=== PATIENT | male | born 1960 | race Caucasian/White ===

== ENCOUNTER 2017-09-25 02:08 | Emergency (ER) | payer OTHER ==
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
[2017-09-25 07:44] VITALS: BP 110/78
[2017-09-26] MEDS ORDERED: BUPROPION XL300 M1 PO (02:14)
[2017-09-26] MEDS ORDERED: HYDROCHLOROTHIA25 M1 PO (02:15)
[2017-09-26] MEDS ORDERED: METOPROLOL SUCC50 M2 PO (02:15)
[2017-09-26] MEDS ORDERED: LOSARTAN POTAS100 M1 PO (02:16)
[2017-09-26] MEDS ORDERED: GABAPENTIN300 M2 PO (02:16)
[2017-09-26] MEDS ORDERED: OXYCODONE HCL15 M1 PO (02:17)
== END 2017-09-25 07:45 ==
LOC: ERH 02:08
DX: F10.129 Alcohol abuse with intoxication, unspecified (principal)
CPT/HCPCS: G0480

== ENCOUNTER 2017-09-25 16:52 | Inpatient (IN) | payer OTHER ==
[~2017-09-25] VITALS: Ht 167.6 cm; Wt 75.9 kg
--- NOTE | 2017-09-25 17:03 | ED PSYCHIATRIC COMPLAINT ---
See Addendum History of Present Illness General Chief Complaint: Psychiatric Related Complaint Stated Complaint: BIBA +SI, +PEER Source: patient Exam Limitations: no limitations Vital Signs & Intake/Output Vital Signs & Intake/Output Vital Signs Date Time Temp Pulse Resp B/P B/P Pulse O2 O2 Flow FiO2 Mean Ox Delivery Rate 09/26 0810 99.3 87 18 178/111 95 Room Air 09/26 0430 98.1 94 16 160/100 09/26 0430 98.1 94 16 160/100 97 Room Air Room Air 09/26 0303 180/104 09/26 0303 180/104 09/26 0206 98.0 104 16 180/108 09/26 0205 98.2 104 16 180/108 96 Room Air Room Air 09/25 2221 105 18 157/91 96 Room Air 09/25 2122 124 18 144/102 97 Room Air 09/25 1707 Room Air 09/25 1706 98.5 118 18 168/102 95 Room Air ED Intake and Output 09/26 0000 09/25 1200 Intake Total Output Total Balance Patient 180 lb Weight Allergies Coded Allergies: UNOBTAINABLE (09/25/17) Triage Nurses Notes Reviewed? yes Onset: Gradual Duration: constant Timing: recent history Severity: severe Severity Numbers: 10 HPI: The patient is a 57-year-old male presents emergency room which old records indicate the patient presented brought in by ambulance to [place] emergency room at 2 AM last night for concerns of driving call all intoxicated through records patient stayed till approximately 8 AM this morning was picked up by his patient return to the emergency room brought in by ambulance for being on a PEER here for concerns of suicide ideation The PEER states that a 911 call was made reporting that Corey stated that he was in his basement trying to hang himself and appeared to be under the influence of alcohol. Patient denies these allegations states that when he left the emergency room he had a few beers and went to sleep. Patient denies any current suicidal or homicidal ideation denies any illness states that his checked cheated on him proximal 6 months ago and began drinking heavily since. Patient denies any pain however is requesting his medications of oxycodone and states that "I'm going through withdrawal right now from oxycodone Denies any homicidal ideation denies any occult jaw seizure history denies any visual or auditory hallucinations. Does not want firearms at home Please note the patient also does not remember the events of being in the emergency room yesterday evening due to his intoxication (Chino Gao) Reconcile Medications Bupropion HCl (Bupropion XL) 300 MG TAB.ER.24H 1 TAB PO DAILY DEPRESSION ( Reported) Gabapentin 300 MG CAPSULE 1 CAP PO TID BACK PAIN (Reported) Hydrochlorothiazide 25 MG TABLET 1 TAB PO DAILY HTN (Reported) Losartan Potassium 100 MG TABLET 1 TAB PO DAILY CHOL (Reported) Metoprolol Succinate 50 MG TAB.ER.24H 1 TAB PO BID HTN (Reported) Oxycodone HCl 15 MG TABLET 1 TAB PO 4XDP BACK PAIN (Reported) (Joseph Lovell MD) Past History Travel History Traveled to [place] past 21 day No Medical History Any Pertinent Medical History? see below for history Neurological: UNOBTAINABLE EENT: UNOBTAINABLE Cardiovascular: hypertension Respiratory: UNOBTAINABLE Gastrointestinal: UNOBTAINABLE Hepatic: UNOBTAINABLE Renal: UNOBTAINABLE Musculoskeletal: chronic back pain Psychiatric: anxiety, UNOBTAINABLE Endocrine: UNOBTAINABLE Blood Disorders: UNOBTAINABLE Cancer(s): UNOBTAINABLE SAFETY COORDINATOR/Reproductive: UNOBTAINABLE Surgical History Surgical History: non-contributory Psychosocial History What is your primary language [place]ian Family History Hx Contributory? No (Chino Gao) Review of Systems Review of Systems Constitutional: Reports: no symptoms. EENTM: Reports: no symptoms. Respiratory: Reports: no symptoms. Cardiovascular: Reports: no symptoms. GI: Reports: no symptoms. Genitourinary: Reports: no symptoms. Musculoskeletal: Reports: no symptoms. Skin: Reports: no symptoms. Neurological/Psychological: Reports: see HPI. Hematologic/Endocrine: Reports: no symptoms. Immunologic/Allergic: Reports: no symptoms. All Other Systems: Reviewed and Negative (Chino Gao) Physical Exam Physical Exam General Appearance: no apparent distress, alert, comfortable Head: atraumatic Eyes: Bilateral: normal appearance, PERRL, EOMI. Ears, Nose, Throat: normal pharynx, normal ENT inspection Neck: normal inspection Respiratory: normal breath sounds, chest non-tender Cardiovascular: regular rate/rhythm Neurological/Psychiatric: no motor/sensory deficits, calm, depressed affect Appearance/Memory/Insight: denies illness, disheveled Behavoir/Eye Contact/Speech: cooperative, increased rate of speech, normal speech Thoughts/Hallucinations: normal thought pattern, no apparent hallucination Skin: intact, normal color, warm/dry SAD PERSONS SAD PERSONS Response Value Male Sex? yes 1 Age <19 or >45 years? yes 1 Excessive Ethanol/Drug Use? yes 1 Single//? yes 1 Total 4 SAD PERSONS Done? yes (Rena JETT,[place]) Progress Differential Diagnosis: drug intoxication, drug overdose, drug withdrawal, electrolyte abnormality, encephalitis, hypoglycemia, hypothyroidism, IC hem/mass /tumor, meningitis Plan of Care: Orders Procedure Date/time Status Regular Diet 09/26 B Active Continuous Observation Monitor 09/25 1710 Active URINE DRUG SCREEN FOR ER ONLY 09/25 171 Complete LIPASE 09/25 171 Complete ETHANOL 09/25 1710 Complete COMPREHENSIVE METABOLIC PANEL 09/25 1710 Complete CBC WITHOUT DIFFERENTIAL 09/25 1710 Complete ED CRISIS PSYCH CONSULT 09/25 171 Active Current Medications Sig/Trini Start time Last Medication Dose Stop Time Status Admin Bupropion HCl 300 MG DAILY 09/26 0900 UNVr (Wellbutrin XL) Hydrochlorothiazide 25 MG DAILY 09/26 0230 UNVr 09/26 (Hydrodiuril) 0303 Losartan Potassium 100 MG DAILY 09/26 0230 UNVr 09/26 (Cozaar) 0303 Gabapentin 300 MG TID 09/26 0218 UNVr 09/26 (Neurontin) 0303 Metoprolol Succinate 50 MG BID 09/26 0218 UNVr 09/26 (Toprol Xl) 0303 Laboratory Tests 09/25/17 1800: Serum Alcohol 257.0 09/25/17 1800: Anion Gap 15, Estimated GFR > 60, BUN/Creatinine Ratio 11.7, Glucose 141 H, Calcium 8.9, Total Bilirubin 1.3, AST 59, ALT 42, Alkaline Phosphatase 81, Total Protein 7.6, Albumin 4.5, Globulin 3.1, Albumin/Globulin Ratio 1.5, Lipase 167, CBC w Diff NO MAN DIFF REQ, RBC 5.07, MCV 93.6, MCH 31.3 H, MCHC 33.5, RDW 16.1 H, MPV 6.8 L, Gran % 63.4, Lymphocytes % 28.5, Monocytes % 7.5, Eosinophils % 0.2, Basophils % 0.4, Absolute Granulocytes 3.7, Absolute Lymphocytes 1.7, Absolute Monocytes 0.4, Absolute Eosinophils 0, Absolute Basophils 0, Urine Opiates Screen 978.00, Methadone Screen < 40, Barbiturate Screen < 60, Ur Phencyclidine Scrn < 6.00, Amphetamines Screen 231, U Benzodiazepines Scrn < 85, Urine Cocaine Screen < 50, Urine Cannabis Screen < 5.00 Patient upon initial presentation is noted to have a depressed affect over was offered alcohol withdrawal evaluation however initially he is unsure Patient will be holdover in the emergency room due to his significant alcohol intoxication for evaluation by crisis tomorrow discussed disposition and plan with patient who is aware patient was requesting his prescriptions of Ativan and oxycodone Hand-Off Endorsed To: Joseph Lovell MD Endorsed Time: 0100 Pending: consult (Chino Gao) Hand-Off Endorsed To: Pasquale Gonzalez DO Endorsed Time: 0700 Pending: consult (Joseph Lovell MD) Departure Departure Disposition: STILL A PATIENT Condition: Stable Clinical Impression Primary Impression: Suicide ideation Secondary Impressions: Alcohol abuse Referrals: Patient Has No Primary Care Dr (PCP/Family) Departure Forms: Customer Survey General Discharge Information (Chino Gao) PA/ROLL PLUGGER Co-Sign Statement Statement: ED Attending supervision documentation- x I saw and evaluated the patient. I have also reviewed all the pertinent lab results and diagnostic results. I agree with the findings and the plan of care as documented in the PA's/ROLL PLUGGER's documentation. [] I have reviewed the ED Record and agree with the PA's/ROLL PLUGGER's documentation. [] Additions or exceptions (if any) to the PAs/ROLL PLUGGER's note and plan are summarized below: [] (Joseph oLvell MD) Departure Comments 09/26/17 The patient was signed out to me by Dr. Lovell. He was seen and evaluated by crisis; he is for bed search. (Pasquale Gonzalez DO) Critical Care Note Critical Care Note Critical Care Time: 30-74 min (Chino Gao)
[2017-09-25 18:14] LABS: ABSOLUTE BASOPHIL COUNT 0 /CUMM (0.0-0.2); ABSOLUTE EOSINOPHIL COUNT 0 /CUMM (0.0-0.7); ABSOLUTE GRANULOCYTE CT 3.7 /CUMM (1.4-6.5); ABSOLUTE LYMPH COUNT 1.7 /CUMM (1.2-3.4); ABSOLUTE MONOCYTE COUNT 0.4 /CUMM (0.10-0.60); BASOPHIL % 0.4 % (0.0-2.0); EOSINOPHIL % 0.2 % (0-5); GRANULOCYTE % 63.4 % (42.2-75.2); HEMATOCRIT 47.4 % (42-52); MEAN CORPUSCULAR HGB 31.3 PG (27.0-31.0); MEAN CORPUSCULAR HGB CONC 33.5 G/DL (33.0-37.0); MEAN CORPUSCULAR VOLUME 93.6 FL (80.0-94.0); MEAN PLATELET VOLUME 6.8 FL (7.4-10.4); PLATELET COUNT 244 /CUMM (130-400); RBC DISTRIBUTION WIDTH 16.1 % (11.5-14.5); RED BLOOD CELL CT 5.07 /CUMM (4.70-6.10); WHITE BLOOD CELL COUNT 5.9 /CUMM (4.8-10.8)
[2017-09-26] VITALS (10 sets, daily range): BP systolic 144–180; BP diastolic 90–114
[2017-09-26] MEDS ORDERED: BUPROPION XL300 M1 PO (02:14)
[2017-09-26] MEDS ORDERED: METOPROLOL SUCC50 M2 PO (02:15)
[2017-09-26] MEDS ORDERED: HYDROCHLOROTHIA25 M1 PO (02:15)
[2017-09-26] MEDS ORDERED: GABAPENTIN300 M2 PO (02:16)
[2017-09-26] MEDS ORDERED: LOSARTAN POTAS100 M1 PO (02:16)
[2017-09-26] MEDS ORDERED: OXYCODONE HCL15 M1 PO (02:17)
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
--- NOTE | 2017-09-26 22:08 | Admission Certification ---
Admission Certification Certification Statement - As attending physician, I certify that at the time of - admission, based on clinical presentation, severity of - symptoms, need for further diagnostic testing and - therapeutic interventions, and risk of adverse outcomes - without in-hospital treatment, in my clinical assessment, - this patient requires an acute hospital stay for a minimum - of two nights or longer. I have also considered psychsocial - factors such as support system, advanced age, financial - issues, cognitive issues, and failed out-patient treatments, - past re-admission history, safety of patient, and lack of - compliance as applicable. Specific rationale supporting this admission is: alcohol detix, SI
[2017-09-27 07:37] VITALS: BP 129/67
[2017-09-27 07:40] VITALS: BP 129/67
[2017-09-27 12:18] VITALS: BP 132/97
[2017-09-27 12:27] VITALS: BP 132/97
--- NOTE | 2017-09-27 12:31 | CPS PROVIDER INIT ASMT PSYCH ---
Psychiatric Admission Pulp Bleacher's Note Reviewed: Yes Patient Seen and Examined: Yes Identifying Information: 57-year-old white male brought in to the emergency department by ambulance Chief Complaint: My depression is unbearable Reaction to Hospitalization: The patient was admitted voluntarily History of Present Illness Onset of Illness: Per Sang Anthony, AUTOMATIC DRILLING MACHINE OPERATOR's notes: "Pt is a 57yo male biba to [facility] ED on a [place] [employer] PEER documenting SI and etoh intoxification. Pt reportedly stated to "I feel like checking out" and was looking in basement for beams strong enough to hang himself from. Pt reports feeling hopeless, worthless and states he is experiencing unbearable depression. Pt reports struggling with alcohol abuse for years and has been drinking a 5th of etoh daily despite 2 recent inpatient detoxes at [facility] followed by tx at their IOP. Pt reports he is currently prescribed Wellbutrin and Ativan and medications for high blood pressure. 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 Pt reports primary stressor past yr is unemployment, finances and marital conflict due to both he and having extra-marital affairs. He reports they have been trying to work things out and that his is supportive of him getting help. Pt denies HI, denies gun access. No indication of AH/VH. pt presents as calm, cooperative, depressed and OX3. Case reviewed with Dr Amin with recommendation for inpatient psychiatric treatment. Plan reviewed with pt and he is in agreement. Pt will require a bed search as there are no current beds available on [facility]. Circumstances Leading to Admission: See above Problem(s) Justifying Need for Admission: See above Past Psychiatric History Past Diagnosis(es)- if any: Depression and alcohol use disorder, severe Past Precipitating Factors- if any: Alcohol use - Include inpatient and outpatient treatment Treatment History: The patient was inpatient at [facility] for a detoxification and then he did their intensive outpatient program History of Suicide Attempts or Gestures Denied ever attempting suicide Substance Abuse History: Alcohol use disorder, severe Allergies: Coded Allergies: No Known Allergies (09/26/17) Home Med List: Bupropion HCl (Bupropion XL) 300 MG TAB.ER.24H 1 TAB PO DAILY DEPRESSION #90 (Reported) Entered as Reported by Izabella Gorman on 06/28/18 0214 Gabapentin 300 MG CAPSULE 1 CAP PO TID BACK PAIN #45 (Reported) Entered as Reported by Izabella Gorman on 09/26/17215 Hydrochlorothiazide 25 MG TABLET 1 TAB PO DAILY HTN #90 (Reported) Entered as Reported by Izabella Goramn on 09/26/17214 Losartan Potassium 100 MG TABLET 1 TAB PO DAILY CHOL #15 (Reported) Entered as Reported by Izabella Gorman on 09/26/17215 Metoprolol Succinate 50 MG TAB.ER.24H 1 TAB PO BID HTN #90 (Reported) Entered as Reported by Izabella Gorman on 09/26/17214 Oxycodone HCl 15 MG TABLET 1 TAB PO 4XDP BACK PAIN - Include any medical condition(s) that may - impact the patient's recovery/remission Past Medical History: HTN, on 3 different meds (losartan, metoprolol and HCTS) his Metoprolol dose was recently increased. 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 Isolation History: Standard Surgical History Surgical History: UNOBTAINABLE Psychiatric Family/Social Hx Family History Psychiatric Illness: Patient's mother has dementia Substance Use: Not explored Suicides: Not explored Social History Living Situation: Lives with and adult son Significant Relationships (family/friends): and adult son Education: Not explored Vocation/Occupation: Currently unemployed 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 - #1 Recognizing dangerous situations. - #2 Coping Skills. - #3 Basic information about quitting. Status of Tobacco Cessation Counseling: #1, #2 AND #3 Completed Cessation Med Status Nicotine Gum Ordered Alcohol Screening - ETOH screen POS if BAL >=80 or Audit-C>= M4/F3 Audit-C Score from Diag Assess: 12 Blood Alcohol Level: Laboratory Tests 09/25 1800 Toxicology Serum Alcohol (<10 MG/DL) 257.0 Alcohol Use Screening Results: Pos per Audit C &/or BAL - If ETOH counseling indicated - the following topics are required. - #1 Express concern about the patient's - drinking at unhealthy levels, include informing - of national norms for moderate drinking: - men <= 14 drinks/week, max 4 drinks/occasion - women <= 7 drinks/week, max 3 drinks/occasion - #2 Providing feedback, including linking alcohol to - negative physical effects (liver injury, hypertension) - negative emotional effects (relationship problems and - depression) - negative occupational consequences (reduced work - performance) - #3 Advising the patient to abstain from alcohol or - to drink below national norms for moderate drinking - (as listed above). Status of ETOH Use Counseling: #1, #2 AND #3 Completed. Metabolic Screening - Screen if on a Neuroleptic Medication - Metabolic screening should include: - Blood Pressure, BMI, Glucose or Hgb A1c, & a - Lipid profile from within the past 365 days. Metabolic Screening Not Applicable, patient not on a neuroleptic. Exam and Plan Mental Status Examination Ambulation Status: Patient was steady on his feet. Appearance: Unremarkable appearance. Attitude towards examiner: , Cooperative. Psychomotor activity: Normal psychomotor activity Behavior: No abnormal or bizarre behaviors Quality of speech: Normal speech Affect: Euthymic Mood: Reported feeling depressed and anxious Suicidal Ideation: Denies thinking of suicide. Homicidal Ideation: Denies thinking of homicide. Hallucinations: Denied hallucinations. Paranoid/Delusional Material: Denies feeling paranoid, there were no delusions during the interview. Difficulties with thought organization: She was coherent, there was no thought disorder. Insight: Partial insight. Judgment: Seems to have poor judgment according to the recent history. Orientation: Alert and oriented to time, place, and person. Cognition: Seems to have no difficulties with information processing. Memory Function: There was no gross impairment in his short-term memory. Estimate of intellectual functioning: Average. Assets/Strengths Patient Identified Assets/Strengths: Patient seems to be likable, he has a supportive family, and good work history Impression/Plan Impression and Plan: 57-year-old white male presenting with depression with severe alcohol use disorder. He was most recently at the intensive outpatient program at [facility] and before that he was in the detoxification inpatient unit at [facility] - Include all active medical diagnosis that require tx DSM 5 Diagnosis(es): Unspecified depressive disorder Alcohol use disorder, severe - Initial Tx Plan for Active Psych & Medical Conditions Treatment Plan: Inpatient psychiatric care with safety checks every 15 minutes Reduce Wellbutrin from 300 mg to 150 mg Start Zoloft 50 mg daily Continue detoxification protocol for the time being Nursing assessments, vital signs, and patient education and Biopsychosocial assessment, collateral information, and aftercare planning by [facility] Group therapy, milieu therapy, and activities therapy Patient will be seen daily by psychiatrist to evaluate mental status and monitor medications. - Factors that would help patient function - in a less restrictive setting. Factors: The patient will be as will be discharge if he continues to deny suicidal ideation over the weekend and once there is a solid discharge plan
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
--- NOTE | 2017-09-27 14:21 | SOCIAL WORKER PROG NOTE PSYCH ---
Social Work Progress Note Progress Note Environmental Journalist was able to meet with pt. Pt is settling into the unit and going to groups. Pt denies SI, HI, VH, AH. Pt was tearful at times, sad, anxious and vulnerable when speaking about the days leading him to be inpatient. Pt reports being overwhelmed at the moment due to not knowing about court dates is very anxious about missing a court date due to being inpatient. Pt had finanical stressors, marital stressors. Pt is motivated for treatment, to go back to [facility] and attend and obtain a sponsor. Pt would like to repair his relationship with his son and be able to work on fixing a car together as a side project. Pt is aware that his alcohol abuse has caused him a lot of pain and stressors. 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 Pt expressed wanting help obtaining information about court dates and arrests, possibly be able to obtian police report and be updates on what the next step will be for him.
[2017-09-27 19:47] VITALS: BP 140/90
[2017-09-27 20:09] VITALS: BP 140/90
[2017-09-28] VITALS (8 sets, daily range): BP systolic 118–154; BP diastolic 86–96
--- NOTE | 2017-09-28 22:19 | CP SOUTH PROGRESS NOTE PSYCH ---
Psych (Inpt) Progress Note Progress Note Chief Complaint Discussed overnight events with RN and staff. As per RN report, the patient appeared to be sleeping throughout the night. No PRNs/restrains required in the last 24hrs. I saw the patient this morning with the treatment team. he reported feeling OK although he continues to appear depressed and isolative. He is minimally interacting with peers. He requested nicotine gum. Otherwise, he denies suicidal /homicidal thoughts/intent/plans at present. he has adequate appetite and sleep. She is compliant to medications, no side effects reported and none in evidence. Vitals reviewed Vital Signs Result Date Time B/P 154/96 09/28 2008 Temp 98.4 09/28 2008 Pulse 84 09/28 2009 Resp 18 09/28 0806 O2 Delivery Room Air 09/26 1751 O2 Flow Rate Room Air 09/26 1751 Pulse Ox 97 09/26 1601 Mental Status Examination Consciousness: Awake, alert Orientation: A&O x4, oriented to person, place, year, situation Appearance: appears stated age, dressed in casual attire, with fair hygiene Behavior: calm and cooperative Attitude: open and engaged Eye Contact: appropriate Speech: articulate, fluent but need prompting at times, answers in short phrases Mood: OK Affect: mood-congruent, constricted to sad with minimal emotional reactivity Thought Process: organized Thought Content: depressed, isolative, withdrawn, lack of motivation, no withdrawal sxs, denies suicidal/homicidal ideations at the time of the interview , no delusions elicited/verbalized at present Perceptions: denies audiovisual hallucinations Attention: attentive to interview Memory: grossly intact Insight: limited Judgment: limited no psychomotor abnormalities noted Motor: no abnormal movements, Gait WNL Neuro: grossly intact Independent in ADL's and iADL's Labs Reviewed as documented in chart. Laboratory Tests 09/25 09/25 1800 1800 Chemistry Sodium (137 - 145 mmol/L) 143 Potassium (3.5 - 5.1 mmol/L) 4.3 Chloride (98 - 107 mmol/L) 101 Carbon Dioxide (22 - 30 mmol/L) 27 Anion Gap (5 - 16) 15 BUN (9 - 20 mg/dL) 14 Creatinine (0.7 - 1.2 mg/dL) 1.2 Estimated GFR (>60 ml/min) > 60 BUN/Creatinine Ratio (7 - 25 %) 11.7 Glucose (65 - 99 mg/dL) 141 H Calcium (8.4 - 10.2 mg/dL) 8.9 Total Bilirubin (0.2 - 1.3 mg/dL) 1.3 AST (17 - 59 U/L) 59 ALT (21 - 72 U/L) 42 Alkaline Phosphatase (< 127 U/L) 81 Total Protein (6.3 - 8.2 g/dL) 7.6 Albumin (3.5 - 5.0 g/dL) 4.5 Globulin (1.9 - 4.2 gm/dL) 3.1 Albumin/Globulin Ratio (1.1 - 2.2 %) 1.5 Lipase (23 - 300 U/L) 167 Hematology CBC w Diff NO MAN DIFF REQ WBC (4.8 - 10.8 /CUMM) 5.9 RBC (4.70 - 6.10 /CUMM) 5.07 Hgb (14.0 - 18.0 G/DL) 15.9 Hct (42 - 52 %) 47.4 MCV (80.0 - 94.0 FL) 93.6 MCH (27.0 - 31.0 PG) 31.3 H MCHC (33.0 - 37.0 G/DL) 33.5 RDW (11.5 - 14.5 %) 16.1 H Plt Count (130 - 400 /CUMM) 244 MPV (7.4 - 10.4 FL) 6.8 L Gran % (42.2 - 75.2 %) 63.4 Lymphocytes % (20.5 - 51.1 %) 28.5 Monocytes % (1.7 - 9.3 %) 7.5 Eosinophils % (0 - 5 %) 0.2 Basophils % (0.0 - 2.0 %) 0.4 Absolute Granulocytes (1.4 - 6.5 /CUMM) 3.7 Absolute Lymphocytes (1.2 - 3.4 /CUMM) 1.7 Absolute Monocytes (0.10 - 0.60 /CUMM) 0.4 Absolute Eosinophils (0.0 - 0.7 /CUMM) 0 Absolute Basophils (0.0 - 0.2 /CUMM) 0 Toxicology Urine Opiates Screen (>2000 NG/ML) 978.00 Methadone Screen (>300 NG/ML) < 40 Barbiturate Screen (>200 NG/ML) < 60 Ur Phencyclidine Scrn (>25 NG/ML) < 6.00 Amphetamines Screen (>1000 NG/ML) 231 U Benzodiazepines Scrn (>200 NG/ML) < 85 Urine Cocaine Screen (>300 NG/ML) < 50 Urine Cannabis Screen (>50 NG/ML) < 5.00 Serum Alcohol (<10 MG/DL) 257.0 Allergy Reviewed as documented in chart. Medications Reviewed as documented in chart. Current Medications Sig/Trini Start time Last Medication Dose Route Stop Time Status Admin Bupropion HCl 150 MG DAILY 09/28 0900 AC 09/28 PO 08 Clonazepam 1 MG ONCE ONE 09/30 1999 AC PO 09/29 2000 Clonazepam 1.5 MG ONCE ONE 09/29 1999 DC 09/28 PO 09/28 Gabapentin 600 MG TID 09/27 1400 AC 09/28 PO 212 Hydrochlorothiazide 25 MG DAILY 09/26 0230 AC 09/28 PO 0806 Lorazepam 1 MG Q6-PRN PRN 09/26 1515 AC 09/26 PO 1744 Losartan Potassium 100 MG DAILY 09/26 0230 AC 09/28 PO 0805 Metoprolol Succinate 50 MG BID 09/26 0218 AC 09/28 PO 2007 Nicotine 2 MG Q2P PRN 09/28 1545 AC 09/28 PO 1848 Oxycodone HCl 15 MG 4 TIMES/DAY 09/26 2100 AC 09/28 PO 2123 Sertraline HCl 50 MG DAILY 09/28 0900 AC 09/28 PO 0806 Trazodone HCl 50 MG AT BEDTIME NEED.. 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 He has a history of MDD and severe alcohol use disorder. His BAL on admission was 250+. No appearing withdrawal sxs at present. Diagnosis Unspecified depressive disorder Alcohol use disorder, severe Nicotine use disorder HTN chronic low back pain Treatment Plan Continue current medication regimen Start Nicotine gum 2mg q2hr PRN for craving
[2017-09-29] VITALS (7 sets, daily range): BP systolic 135–150; BP diastolic 87–94
--- NOTE | 2017-09-29 18:06 | CP SOUTH PROGRESS NOTE PSYCH ---
Psych (Inpt) Progress Note Progress Note Chief Complaint Discussed overnight events with RN and staff. No PRNs/restrains required in the last 24hrs. As per RN report, the patient appeared to be sleeping throughout the night. I saw the patient this morning with the treatment team. He reported feeling good he inquired about Suboxone for chronic pain vs, methadone, this MD advised to see pain clinic upon discharge. Discussed other pain treatment interventions. He denies suicidal ideations, no evidence of psychosis, denies hallucinations. Slept well and has fair appetite. Vitals reviewed Vital Signs Result Date Time B/P 142/94 09/29 1555 Pulse 76 09/29 1555 Temp 96.9 09/29 0806 Resp 18 09/29 0757 O2 Delivery Room Air 09/26 1751 O2 Flow Rate Room Air 09/26 1751 Pulse Ox 97 09/26 1601 Mental Status Examination Consciousness: Awake, alert Orientation: A&O x4, oriented to person, place, year, situation Appearance: appears stated age, dressed in casual attire, with fair hygiene Behavior: calm and cooperative Attitude: open and engaged Eye Contact: appropriate Speech: articulate, fluent, clear and coherent Mood: good Affect: mood-congruent, dysphoric Thought Process: organized, linear, goal directed Thought Content: denies suicidal/homicidal ideations at the time of the interview, no delusions elicited/verbalized at present Perceptions: denies audiovisual hallucinations Attention: attentive to interview Memory: grossly intact Insight: fair Judgment: fair no psychomotor abnormalities Motor: no abnormal movements Neuro: grossly intact Independent in ADL's and iADL's Labs Reviewed as documented in chart. Laboratory Tests Allergy Reviewed as documented in chart. Medications Reviewed as documented in chart. Current Medications Sig/Trini Start time Last Medication Dose Route Stop Time Status Admin Bupropion HCl 150 MG DAILY 09/28 0900 AC 09/29 PO 075 Clonazepam 1 MG ONCE ONE 09/30 1999 AC PO 09/29 2000 Clonazepam 1.5 MG ONCE ONE 09/29 1999 DC 09/28 PO 09/28 Gabapentin 600 MG TID 09/27 1400 AC 09/29 PO 1259 Hydrochlorothiazide 25 MG DAILY 09/26 0230 AC 09/29 PO 0757 Lorazepam 1 MG Q6-PRN PRN 09/26 1515 AC 09/26 PO 1744 Losartan Potassium 100 MG DAILY 09/26 0230 AC 09/29 PO 0757 Metoprolol Succinate 50 MG BID 09/26 0218 AC 09/29 PO 0757 Nicotine 2 MG Q2P PRN 09/28 1545 AC 09/29 PO 1800 Oxycodone HCl 15 MG 4 TIMES/DAY 09/26 2100 AC 09/29 PO 1705 Sertraline HCl 50 MG DAILY 09/28 0900 AC 09/29 PO 0758 Trazodone HCl 50 MG AT BEDTIME NEED.. 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 He has a history of MDD and severe alcohol use disorder. His BAL on admission was 250+. No appearing withdrawal sxs at present. He appears stable today. Diagnosis Unspecified depressive disorder Alcohol use disorder, severe Nicotine use disorder HTN Chronic low back pain Treatment Plan Continue current medication regimen
[2017-09-30 07:43] VITALS: BP 120/86
[2017-09-30 08:26] VITALS: BP 120/86
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
[2017-09-30 12:12] VITALS: BP 146/95
[2017-09-30 12:13] VITALS: BP 146/95
--- NOTE | 2017-09-30 14:50 | CP SOUTH PROGRESS NOTE PSYCH ---
Psych (Inpt) Progress Note Progress Note Mental Status Examination Awake, alert, oriented to person, place, year, situation appears stated age, dressed in casual attire, calm and cooperative Speech was articulate, fluent, clear and coherent Mood is good, affect is mood-congruent, dysphoric Thought Process is organized, linear, goal directed denies suicidal/homicidal ideations at the time of the interview, no delusions elicited/verbalized at present denies audiovisual hallucinations attentive to interview Memory is grossly intact, no psychomotor abnormalities, no abnormal movements Assessment 57-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 He has a history of MDD and severe alcohol use disorder. His BAL on admission was 250+. No appearing withdrawal sxs at present. He appears stable today. Diagnosis Unspecified depressive disorder Alcohol use disorder, severe Nicotine use disorder HTN Chronic low back pain Treatment Plan May discharge home to continue with IOP O2 Flow Rate Room Air 09/26 1751 Pulse Ox 97 09/26 1601 Mental Status Examination Consciousness: Awake, alert Orientation: A&O x4, oriented to person, place, year, situation Appearance: appears stated age, dressed in casual attire, with fair hygiene Behavior: calm and cooperative Attitude: open and engaged Eye Contact: appropriate Speech: articulate, fluent, clear and coherent Mood: good Affect: mood-congruent, dysphoric Thought Process: organized, linear, goal directed Thought Content: denies suicidal/homicidal ideations at the time of the interview, no delusions elicited/verbalized at present Perceptions: denies audiovisual hallucinations Attention: attentive to interview Memory: grossly intact Insight: fair Judgment: fair no psychomotor abnormalities Motor: no abnormal movements Neuro: grossly intact Independent in ADL's and iADL's Labs Reviewed as documented in chart. Laboratory Tests Allergy Reviewed as documented in chart. Medications Reviewed as documented in chart. Current Medications Sig/Trini Start time Last Medication Dose Route Stop Time Status Admin Bupropion HCl 150 MG DAILY 09/28 0900 AC 09/29 PO 075 Clonazepam 1 MG ONCE ONE 09/30 1999 AC PO 09/29 2000 Clonazepam 1.5 MG ONCE ONE 09/29 1999 DC 09/28 PO 09/28 Gabapentin 600 MG TID 09/27 1400 AC 09/29 PO 125 Hydrochlorothiazide 25 MG DAILY 09/26 0230 AC 09/29 PO 0757 Lorazepam 1 MG Q6-PRN PRN 09/26 1515 AC 09/26 PO 1744 Losartan Potassium 100 MG DAILY 09/26 0230 AC 09/29 PO 0757 Metoprolol Succinate 50 MG BID 09/26 0218 AC 09/29 PO 0757 Nicotine 2 MG Q2P PRN 09/28 1545 AC 09/29 PO 1800 Oxycodone HCl 15 MG 4 TIMES/DAY 09/26 2100 AC 09/29 PO 1705 Sertraline HCl 50 MG DAILY 09/28 0900 AC 09/29 PO 0758 Trazodone HCl 50 MG AT BEDTIME NEED.. 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 He has a history of MDD and severe alcohol use disorder. His BAL on admission was 250+. No appearing withdrawal sxs at present. He appears stable today. Diagnosis Unspecified depressive disorder Alcohol use disorder, severe Nicotine use disorder HTN Chronic low back pain Treatment Plan Continue current medication regimen
[2017-09-30] MEDS ORDERED: METOPROLOL SUCC50 M2 PO (15:12)
[2017-09-30] MEDS ORDERED: WELLBUTRIN XL150 M2 PO (15:12)
[2017-09-30] MEDS ORDERED: SERTRALINE HCL50 MG PO (15:12)
[2017-09-30] MEDS ORDERED: HYDROCHLOROTHIA25 M1 PO (15:12)
[2017-09-30] MEDS ORDERED: LOSARTAN POTAS100 M1 PO (15:12)
[2017-09-30] MEDS ORDERED: TRAZODONE HCL50 M1 PO (15:12)
--- NOTE | 2017-09-30 15:14 | Patient Discharge Instructions ---
Psych Discharge Inst General Discharge Information Reason for Admission: making suicide statement: "I feel like checking out" Psy Discharge Primary Diag+ Unspecified Depressive DO Psy Discharge Secondary Diag+ Alcohol Use Disorder Opioid Use Disorder, Opioid Use Disorder Summary Tests/Major Procedures Lab Serum Alcohol 257.0 MG/DL 09/25/17 1800 Urine Opiates Screen 978.00 NG/ML 09/25/17 1800 Studies Pending at DC: none Patient Instructions Contact Information Your Psychiatrist on [facility] was Rosie HOANG,Garry * If you are experiencing an emergency related to this hospitalization, please call [phone] to contact the treating psychiatrist or the psychiatrist-on- call. * To Request a copy of your medical records, please contact the Medical Records Department at [phone]. * To request results of studies pending at the time of discharge, please call [phone]. * Continue your Medications until directed to stop by your Healthcare provider. General Medication Information Please continue to take your new medications and your continued home medications , unless otherwise indicated on your discharge medication list, or unless directed by your MD or MUSHROOM LABORER to stop them. Special Instructions Diet Regular Activity Normal - Tobacco Use Treatment Offered Post DC Medications Offered: Refused Tob Medication Tx Post DC Tobacco Treatment Plan: Refused Tobacco Tx Pgm - EtOH/Drug Use D/O Treatment Offered Post DC Medications Offered: Med Not Indicated for D/O Post DC EtOH/SubAbuse TX Plan: Lenin SubAbuse/Dual IOP Metabolic Screening Not Applicable, patient not on a neuroleptic. Advance Directives Does the Patient have Medical Advance Directives No/Refused further info Does Pt have Psychiatric Advance Directives? No/Refused further info Does Patient have a Designated Surrogate Decision Maker: No Information About Psychiatric Advance Directives Provided? Refused Discharge Plan Post Hospital Treatment Plan: DUAL IOP with Suboxone induction by Dr. Buck
[2017-09-30 15:27] VITALS: BP 178/114
[2017-09-30] MEDS ORDERED: GABAPENTIN300 M2 PO (15:31)
[2017-09-30 15:40] VITALS: BP 178/114
--- NOTE | 2017-09-30 16:35 | SOCIAL WORKER PROG NOTE PSYCH ---
Social Work Progress Note Faxed Referral(s) Referred To: [facility] Transition of Care Documents sent: Health Summary Faxed to: [facility] Fax #: [phone] Faxed by: Stephanie Sanchez Date faxed: 09/30/17 Time Faxed: [phone]
== END 2017-09-30 15:46 | DRG 881 ==
LOC: ERH 16:52 → ERHI 09-26 15:08 → CP SOUTH 09-26 15:08 → ENTRNSPT 09-26 16:14 → EDTRNSPT 09-26 16:20 → EDTRNSPTSTS 09-26 16:20 → CP SOUTH 09-26 16:33 → CMPTRNSPT 09-26 16:37 → CP SOUTH 09-27 16:20
PROVIDERS: Physician Assistant
DX: F32.9 Major depressive disorder, single episode, unspecified (principal); Z72.89 Other problems related to lifestyle; F11.90 Opioid use, unspecified, uncomplicated
CPT/HCPCS: 80307; G0480; J3490

== ENCOUNTER 2017-10-02 12:58 | Observation (INO) | payer OTHER ==
[~2017-10-02] VITALS: Ht 172.7 cm; Wt 81.6 kg
[~2017-10-02 12:58] MED LIST: BUPROPION XL300 M1 PO; GABAPENTIN300 M2 PO; HYDROCHLOROTHIA25 M1 PO; LOSARTAN POTAS100 M1 PO; METOPROLOL SUCC50 M2 PO; OXYCODONE HCL15 M1 PO; SERTRALINE HCL50 MG PO; TRAZODONE HCL50 M1 PO; WELLBUTRIN XL150 M2 PO
--- NOTE | 2017-10-02 13:03 | ED GENERAL ADULT ---
See Addendum History of Present Illness General Chief Complaint: General Adult Stated Complaint: BIBA UNRESPONSIVE Source: patient, family, old records, EMS Exam Limitations: clinical condition, intoxication Vital Signs & Intake/Output Vital Signs & Intake/Output Vital Signs Date Time Temp Pulse Resp B/P B/P Pulse O2 O2 Flow FiO2 Mean Ox Delivery Rate 10/02 1506 Room Air 10/02 1301 97.1 75 14 109/60 98 Nasal 3.0L Cannula Allergies Coded Allergies: No Known Allergies (09/26/17) Reconcile Medications Bupropion HCl (Wellbutrin XL) 150 MG TAB.ER.24H 150 MG PO DAILY depression Gabapentin 300 MG CAPSULE 600 MG PO TID anxiety Hydrochlorothiazide 25 MG TABLET 1 TAB PO DAILY HTN Losartan Potassium 100 MG TABLET 1 TAB PO DAILY HTN Metoprolol Succinate 50 MG TAB.ER.24H 1 TAB PO BID HTN Sertraline HCl 50 MG TABLET 50 MG PO DAILY anxiety Trazodone HCl 50 MG TABLET 50 MG PO AT BEDTIME PRN INSOMNIA Triage Nurses Notes Reviewed? yes HPI: Patient was released from Inpatient Psychiatry yesterday after admission for depression with suicidal ideations. Patient was at home today and his son found him semi-responsive in the bathroom. Patient states that he took 2 Ativan. He denies any coingestion. He denies suicidal or homicidal ideations. Patient brought in by ambulance for evaluation. Patient is somnolent and unresponsive to verbal stimuli. Past History Travel History Traveled to [place] past 21 day No Medical History Any Pertinent Medical History? 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 No Review of Systems Review of Systems Constitutional: Reports: see HPI. Physical Exam Physical Exam General Appearance: lethargic, severe distress, intoxicated Head: atraumatic Eyes: Bilateral: PERRL, EOMI, other (SLUGGISH). Ears, Nose, Throat: normal pharynx, normal ENT inspection, hearing grossly normal Neck: normal inspection, supple, full range of motion Respiratory: normal breath sounds, chest non-tender, no respiratory distress, lungs clear Cardiovascular: regular rate/rhythm, normal peripheral pulses Gastrointestinal: normal bowel sounds, soft Back: normal inspection Extremities: normal inspection, normal capillary refill, normal range of motion, no edema Neurologic/Psych: ALERT TO VERBAL STIMULAE Skin: intact, normal color, warm/dry Lymphatic: no anterior cervical fany Core Measures ACS in differential dx? No CVA/TIA Diagnosis: No Sepsis Present: No Sepsis Focused Exam Completed? No Progress Differential Diagnoses I considered the following diagnoses in my evaluation of the patient: [Alcohol intoxication, drug intoxication, overdose, CVA, AMI, electrolyte abnormality] Plan of Care: Orders Procedure Date/time Status BASIC METABOLIC PANEL 10/03 0700 Active Regular Diet 10/[address] in observation 10/02 1447 Active ED Holding Orders 10/02 1447 Active Patient Data 10/02 1447 Active Vital Signs 10/02 1447 Active ED CRISIS PSYCH CONSULT 10/02 1447 Active Code Status 10/02 1447 Active Intake & Output 10/02 1435 Active Continuous Observation Monitor 10/02 1318 Active URINALYSIS 10/02 1315 Complete ARTERIAL BLOOD GAS (GEN) 10/02 1303 Complete Telemetry/[employer]atbed [employer] Driver 10/02 1303 Active Still, Insertion/Removal/Asses 10/02 1303 Active CULTURE,URINE 10/02 1303 Active URINE DRUGS OF ABUSE 10/02 1303 Complete ACETOMINOPHEN 10/02 1303 Complete TROPONIN LEVEL 10/02 1303 Complete SALICYLATE 10/02 1303 Complete ETHANOL 10/02 1303 Complete COMPREHENSIVE METABOLIC PANEL 10/02 1303 Complete CBC WITHOUT DIFFERENTIAL 10/02 1303 Complete EKG 10/02 1303 Active Current Medications Sig/Trini Start time Last Medication Dose Stop Time Status Admin Sodium Chloride 1,000 ML ONCE ONE 10/02 1500 AC 10/02 (Normal Saline 0.9%) 10/02 6839 1553 Laboratory Tests 10/02/17 1315: Urine Opiates Screen < 100, Methadone Screen < 40, Barbiturate Screen < 60, Ur Phencyclidine Scrn < 6.00, Amphetamines Screen 329, U Benzodiazepines Scrn < 85, Urine Cocaine Screen < 50, Urine Cannabis Screen < 5.00, Urinalysis LIGHT H, Urine Color YEL, Urine Clarity CLEAR, Urine pH 6.0, Ur Specific [place] 1.010, Urine Protein NEG, Urine Ketones NEG, Urine Nitrite NEG, Urine Bilirubin NEG, Urine Urobilinogen 0.2, Ur Leukocyte Esterase NEG, Ur Microscopic SEDIMENT EXAMINED, Urine RBC RARE, Urine WBC RARE, Ur Epithelial Cells RARE, Urine Bacteria FEW H, Granular Casts 1-3 H, Urine Hemoglobin SMALL H, Urine Glucose NEG 10/02/17 1305: pH 7.36, pCO2 39, pO2 107 H, HCO3 21, ABG O2 Sat (Measured) 97.0, Carboxyhemoglobin 0.4 L, O2 Concentration % 3L, O2 Delivery Method N/C, Phlebotomy Draw Site LEFT RADIAL 10/02/17 1300: Anion Gap 17 H, Estimated GFR 42 L, BUN/Creatinine Ratio 13.5, Glucose 102 H, Calcium 8.8, Total Bilirubin 0.4, AST 50, ALT 80 H, Alkaline Phosphatase 55, Troponin I < 0.01, Total Protein 6.6, Albumin 3.8, Globulin 2.8, Albumin/ Globulin Ratio 1.4, CBC w Diff NO MAN DIFF REQ, RBC 4.76, MCV 94.2 H, MCH 31.3 H, MCHC 33.2, RDW 15.4 H, MPV 7.4, Gran % 48.7, Lymphocytes % 37.4, Monocytes % 11.7 H, Eosinophils % 1.9, Basophils % 0.3, Absolute Granulocytes 3.9, Absolute Lymphocytes 3.0, Absolute Monocytes 0.9 H, Absolute Eosinophils 0.2, Absolute Basophils 0, Salicylates < 1.0, Acetaminophen < 10.0 L, Serum Alcohol 394.0 Microbiology 10/02 131 URINE ROUT: Urine Culture - RECD Diagnostic Imaging: Viewed by Me: Radiology Read, CT Scan. Discussed w/RAD: Radiology Read, CT Scan. Radiology Impression: PATIENT: CHARLY OREILLY PRESENT AGE: 57 PATIENT ACCOUNT NO: [id number] : 62 LOCATION: [facility] ORDERING PHYSICIAN: Charly Alejandro MD SERVICE DATE: 10/02/17 EXAM TYPE: CAT - CT HEAD WO IV CONTRAST EXAMINATION: CT HEAD WITHOUT CONTRAST CLINICAL INFORMATION: Mental status change without focal finding. COMPARISON: None TECHNIQUE: Contiguous axial imaging was performed from the skull base to vertex without intravenous administration of contrast. DLP: 614.18 mGy-cm FINDINGS: There is no evidence of acute intracranial hemorrhage or territorial infarction. No abnormal mass effect or midline shift is seen. Christina to white matter differentiation is well preserved. No extra-axial fluid collections are identified. The ventricles are normal in size. There is no abnormal attenuation within the brain parenchyma. The osseous structures and soft tissues are normal. There are atherosclerotic calcifications of the skull base vasculature. There is mild bilateral ethmoid mucosal thickening. The mastoid air cells are well aerated and clear. IMPRESSION: 1. No acute intracranial pathology. 2. There is mild bilateral ethmoid sinusitis. DICTATED BY: Forest Stinson MD DATE/TIME DICTATED:10/02/171401 REGULATORY ATTORNEY:LEA DATE/TIME TRANSCRIBED:1401 CONFIDENTIAL, DO NOT COPY WITHOUT APPROPRIATE AUTHORIZATION. < Electronically signed in Other Vendor System> SIGNED BY: Forest Stinson MD 10/02/171406 CXR Impression: PATIENT: CHARLY OREILLY PRESENT AGE: 57 PATIENT ACCOUNT NO: [id number] : 62 LOCATION: [facility] ORDERING PHYSICIAN: Charly Alejandro MD SERVICE DATE: 10/02/17 EXAM TYPE: RAD - XRY- PORTABLE CHEST XRAY EXAMINATION: XR PORTABLE CHEST CLINICAL INFORMATION: Vomiting and dyspnea. COMPARISON: None TECHNIQUE: Portable frontal view of the chest was obtained. There is mild motion artifact. FINDINGS: Lung volumes are somewhat low. No significant abnormality is noted involving the heart, lungs, mediastinum, bony thorax or soft tissues. IMPRESSION: No active cardiopulmonary disease. Lung volumes are somewhat low. DICTATED BY: Forest Stinson MD DATE/TIME DICTATED:10/02/171401 REGULATORY ATTORNEY:LEA DATE/TIME TRANSCRIBED:1401 CONFIDENTIAL, DO NOT COPY WITHOUT APPROPRIATE AUTHORIZATION. < Electronically signed in Other Vendor System> SIGNED BY: Forest Stinson MD 10/02/171407 Initial ED EKG: NSR, nonspecific ST T wave chg Prior EKG: unchanged Hand-Off Endorsed To: Tha Dorman MD Endorsed Time: 1899 Pending: consult (CRISIS), other (RE-EVAL) Departure Departure Disposition: STILL A PATIENT Condition: Stable Clinical Impression Primary Impression: Alcohol intoxication Secondary Impressions: ARF (acute renal failure) Referrals: Patient Has No Primary Care Dr (PCP/Family) Departure Forms: Customer Survey General Discharge Information Critical Care Note Critical Care Note Critical Care Time: mins: (90 MIN) ED Attending Observation Initial Observation Note: I have seen and personally examined CHARLY OREILLY on 10/02/17 at 1447. I agree with the current emergency department documentation. The disposition (admission or discharge) is uncertain at this time, he needs a period of observation for the following reason(s): [Patient is clinically intoxicated as well as an elevated creatinine. Patient will receive gentle hydration tonight and following up with CIWA score. It is unknown at this time if the patient will require admission or if he will be stable for discharge.] The ED Nurse caring for this patient has been personally informed as to what the patient is being observed for. Observation Re-Evaluation: I have reevaluated CHARLY OREILLY on 10/02/17 at 1715. The physical findings that support the continued need to observe this patient include [patient rested comfortably, continue to receive IV fluids. We'll continue to monitor closely. His lungs are clear to auscultation bilaterally.].
[2017-10-02 14:05] LABS: ABSOLUTE BASOPHIL COUNT 0 /CUMM (0.0-0.2); ABSOLUTE EOSINOPHIL COUNT 0.2 /CUMM (0.0-0.7); ABSOLUTE GRANULOCYTE CT 3.9 /CUMM (1.4-6.5); ABSOLUTE MONOCYTE COUNT 0.9 /CUMM (0.10-0.60); BASOPHIL % 0.3 % (0.0-2.0); EOSINOPHIL % 1.9 % (0-5); GRANULOCYTE % 48.7 % (42.2-75.2); HEMATOCRIT 44.8 % (42-52); MEAN CORPUSCULAR HGB 31.3 PG (27.0-31.0); MEAN CORPUSCULAR HGB CONC 33.2 G/DL (33.0-37.0); MEAN CORPUSCULAR VOLUME 94.2 FL (80.0-94.0); MEAN PLATELET VOLUME 7.4 FL (7.4-10.4); PLATELET COUNT 244 /CUMM (130-400); RBC DISTRIBUTION WIDTH 15.4 % (11.5-14.5); RED BLOOD CELL CT 4.76 /CUMM (4.70-6.10); WHITE BLOOD CELL COUNT 7.9 /CUMM (4.8-10.8)
--- NOTE | 2017-10-02 14:07 | CT SCAN REPORT ---
EXAMINATION: CT HEAD WITHOUT CONTRAST CLINICAL INFORMATION: Mental status change without focal finding. COMPARISON: None TECHNIQUE: Contiguous axial imaging was performed from the skull base to vertex without intravenous administration of contrast. DLP: 614.18 mGy-cm FINDINGS: There is no evidence of acute intracranial hemorrhage or territorial infarction. No abnormal mass effect or midline shift is seen. Christina to white matter differentiation is well preserved. No extra-axial fluid collections are identified. The ventricles are normal in size. There is no abnormal attenuation within the brain parenchyma. The osseous structures and soft tissues are normal. There are atherosclerotic calcifications of the skull base vasculature. There is mild bilateral ethmoid mucosal thickening. The mastoid air cells are well aerated and clear. IMPRESSION: 1. No acute intracranial pathology. 2. There is mild bilateral ethmoid sinusitis.
--- NOTE | 2017-10-02 14:08 | RADIOLOGY REPORT ---
EXAMINATION: XR PORTABLE CHEST CLINICAL INFORMATION: Vomiting and dyspnea. COMPARISON: None TECHNIQUE: Portable frontal view of the chest was obtained. There is mild motion artifact. FINDINGS: Lung volumes are somewhat low. No significant abnormality is noted involving the heart, lungs, mediastinum, bony thorax or soft tissues. IMPRESSION: No active cardiopulmonary disease. Lung volumes are somewhat low.
[2017-10-03] MEDS ORDERED: OXYCODONE HCL15 M1 PO (08:19)
[2017-10-03 10:20] VITALS: BP 168/98
[2017-10-03 12:20] VITALS: BP 160/90
--- NOTE | 2017-10-03 12:42 | ED PSYCHIATRIST/APRN CONSULT ---
Psychiatrist/BRUSH MAKER ED Consult Assessment and Plan: Psychiatric consultation and new Date of consultation 10/03/2017 and Reason for consultation: Risk evaluation in view of recent relapse to alcohol very soon after his discharge from Inpatient Psychiatry on September, History of present episode: Patient was released from Inpatient Psychiatry 09/30/2017 Next day, October 01, 2017, his son found him semi-responsive in the bathroom. Patient states that he took 2 Ativan (old script). He denies any coingestion. He denies suicidal or homicidal ideations. Patient brought in by ambulance for evaluation. Patient is somnolent and unresponsive to verbal stimuli. Past Psychiatric History: September 26 through September 30, 2017 on the inpatient psychiatric unit at [facility]. Before that, the patient was inpatient at [facility] for a detoxification and then he did their intensive outpatient Alcohol and substance abuse history: Alcohol use disorder, severe Opioid use disorder slated to start Suboxone. Personal, family, and social history: Patient is a 57-year-old white male who lives with his and his adult son. 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 Patient may have had 1 or 2 DUI charges Mental Status Examination The patient was seen in the emergency room he was sitting in a chair. He was awake, alert, oriented to person, place, year, situation. His presentation was similar to his presentation when he was on the inpatient psychiatric unit (i.e. focused on getting out). He appears stated age, dressed in blue scrubs, he was calm and cooperative His speech was articulate, fluent, clear and coherent He reported that his mood is good, and his affect is mood-congruent, his thought process is organized, linear, and goal directed He denies wishing or thinking of suicide. He denied having any violent thoughts or thoughts of homicide. There were no delusions elicited/verbalized at present He denied hallucinations, his memory is grossly intact, no psychomotor abnormalities, no abnormal movements Assessment A 57-year-old white male who was brought to the ED after his son found him unresponsive on the bathroom floor. The patient was discharged from the inpatient psychiatric unit on September 30 and he seems to have had relapsed on alcohol right away. The patient was brought in initially because there was suspicion that he may have been having a severe medical crisis. The patient denied that he overdosed on anything intentionally he alleges that he took only 2 tablets of Ativan from an old prescription. Patient denied thinking of suicide and he denied wishing or feeling hopeless or feeling worthless. Patient reported that he plans to attend the intensive outpatient program intake tomorrow and that he is going to try to make it to Dr. Buck to start his Suboxone. Diagnosis Unspecified depressive disorder Alcohol use disorder, severe Nicotine use disorder HTN Chronic low back pain Recommendations: There is no need for inpatient psychiatric care at this point. The patient is to attend his intake of the intensive outpatient program-dual track tomorrow The patient is to attempt to see Dr. Buck to start Suboxone this afternoon. The patient claimed that his Suboxone prescription was already called to the pharmacy and he that is supposed to pick it up and bring it to the office to be any to be initiated on Suboxone under observation.
--- NOTE | 2017-10-03 13:09 | ED PSYCH CRISIS CONSULTATION ---
Crisis Consult Basic Assessment Date of Consult: 10/03/17 Responsible Person/Accompanied By: self/biba Insurance Authorization: Insurance #1: Insurance name: BARNEY Phone number: Policy number: [id number] Group number: [id number] Authorization number: ED Provider: Patient's ED Provider: Pasquale Fan MD Primary Care Physician: Patient's PCP: Patient Has No Primary Care Dr PCP's Phone Number: Current Psychiatrist: last seen on [facility] by Dr Velez Chief Complaint: General Adult Patient's Quote: i drank and took 1 ativan Present Illness: Pt is a 57yo male biba to [facility] ED yesterday afternoon doing to being found unresponsive related to etoh intoxification. Pt BAL 393. Pt also reports taking 1-2 ativan from an old prescription. Pt reports struggling with alcohol abuse for years and was discharged from [facility] on 09/30 due to an episode of SI and etoh. Pt also has had 2 recent inpatient detoxes at [facility] followed by tx at their IOP. 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 Pt reports primary stressor past yr is unemployment, finances and marital conflict due to both he and having extra-marital affairs. He reports they have been trying to work things out and that his is supportive of him getting help. Pt denies HI, denies gun access. No indication of AH/VH. pt presents as calm, cooperative, depressed and OX3. Case reviewed with Dr Velez with recommendation to schedule IOP intake and schedule appt with Dr Buck for suboxone indocuction tx. Plan reviewed with pt and he is in agreement. Pt will attend appt with Dr Buck this afternoon and has reschuled IOP intake for tomorrow (10/04) at 11:30am. Pt will be transported to Dr Buck appt by his . Patient's Address: [address] [place] [address] Other Phone Number: Who Do You Live With? Family ( and son) Family/Informants Interviewed: collateral provided by pt Arleth [phone]. She reports concern that pt had a heart attack or stroke. She reports being surprised that he was drinking. No reported SI since CPS discharge. Allergies - Coded Allergies: No Known Allergies (09/26/17) Current Medications - Scheduled Medications Bupropion HCl (Wellbutrin XL) 150 MG TAB.ER.24H 150 MG PO DAILY depression #15 TAB Prescribed by Garry Velez MD on 09/30/17 Gabapentin 300 MG CAPSULE 600 MG PO TID anxiety #60 CAP Prescribed by Garry Velez MD on 09/30/17 Hydrochlorothiazide 25 MG TABLET 1 TAB PO DAILY HTN #90 TAB Prescribed by Garry Velez MD on 09/30/17 Losartan Potassium 100 MG TABLET 1 TAB PO DAILY HTN #15 TAB Prescribed by Garry Velez MD on 09/30/17 Metoprolol Succinate 50 MG TAB.ER.24H 1 TAB PO BID HTN #30 TAB Prescribed by Garry Velez MD on 09/30/17 Sertraline HCl 50 MG TABLET 50 MG PO DAILY anxiety #15 TAB Prescribed by Garry Velez MD on 09/30/17 Scheduled PRN Medications Trazodone HCl 50 MG TABLET 50 MG PO AT BEDTIME PRN INSOMNIA #15 TAB Prescribed by Garry Velez MD on 09/30/17 Miscellaneous Medications Oxycodone HCl 15 MG TABLET PAIN (Reported) Entered as Reported by Jim Richards on 10/03/17 0819 Discontinued Medications Bupropion HCl (Bupropion XL) 300 MG TAB.ER.24H 1 TAB PO DAILY DEPRESSION #90 (Reported) Discontinued reason: Changed Dose Gabapentin 300 MG CAPSULE 1 CAP PO TID BACK PAIN #45 (Reported) Discontinued reason: Changed Dose Oxycodone HCl 15 MG TABLET 1 TAB PO 4XDP BACK PAIN #100 (Reported) Discontinued reason: Per Doctor Decision Laboratory Results: Laboratory Tests 10/03/17 0758: Anion Gap 14, Estimated GFR > 60, BUN/Creatinine Ratio 15.5, Glucose 111 H, Calcium 9.0 Past History Past Medical History Neurological: NONE EENT: NONE Cardiovascular: hypertension Respiratory: NONE Gastrointestinal: NONE Hepatic: NONE Renal: NONE Musculoskeletal: chronic back pain Psychiatric: anxiety, depression Endocrine: NONE Blood Disorders: NONE Cancer(s): NONE TWISTHAND/Reproductive: NONE Past Surgical History Surgical History: non-contributory Psychosocial History 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: commercial accountant; 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 motivated to get sober and patch up his relationship with his son. Physical Limitations (Interventions): none reported Psychiatric Treatment History Psych Treatment Psychiatric Treatment Yes Inpatient Treatment Yes Outpatient Treatment Yes Location of Treatment [facility] Reason for Treatment etoh depression Dates of Treatment Pt discharged from [facility] 09/30/17 Response to Treatment pt having difficulty maintaining sobriety Diagnosis by History: depression etoh Substance Use/Abuse History Drug Use/Abuse Substances Used/Abused Yes Substance Used/Abused Alcohol Last Used yesterday How much used/taken uncertain How often 1st time since CPS d/c on 09/30 Substance Abuse Treatment Substance Abuse Treatment Past Substance Abuse TX Yes Inpatient Treatment Yes Outpatient Treatment Yes Location of Treatment [facility] Reason for Treatment long hx of etoh Comments: pt relapsed with etoh soon after discharge from [facility] Current Mental Status Mental Status Orientation: Person, Place, Situation Affect: Depressed Speech: WNL Neuro-vegetative: Energy Decreased, Sleep Disturbance Appearance Appearance- Dress/Hygiene: hospital scrubs; alert and cccoperative; sad affect Behaviors Thought Process: WNL Thought Content: WNL Memory: WNL Insight: Fair SI/HI Risk Assessment Past Suicidal Ideation/Attempts Yes Current Suicidal Ideation/Att No Past Homicidal Ideation/Att: No Current Homicidal Ideation/Attempts No Degree of Intent: None Gravely Disabled: Poor Impulse Control, Poor Judgment Risk Factors: access to lethal means, chronic/serious med cond., SA/MH hospitalized, substance abuse, poor impulse control, male Lethality Ratin PTSD Checklist PTSD Done? patient declined ED Management Sitter: Yes Restraints: No DSM5/PS Stressors/Medical Prob Diagnosis' (DSM 5, Stressors, Medical): Unspecified Depression F32.9 Alcohol Use D/O F10.20 marital conflict hypertension Current GAF: 35 Comments: pt reports relapse and desire to reschedule iop intake Departure Disposition Psych Medical Clearance Date: 10/03/17 Medically Cleared at: 1115 Time Started: 1115 Time Ended: 1200 Psychiatrist Consulted: Garry Velez MD Date Disposition Established: 10/03/17 Time Disposition Established: 1215 Plan for Disposition - Modality: IOP Facility: [facility] Follow-up Appt Date: 10/04/17 Follow-Up Appt Time: 1130 Rationale for Disposition: ongoing step down tx for depression and etoh abuse Additional Instructions: pt scheduled 10/03/[address] Buck for suboxone induction Referrals Patient Has No Primary Care Dr (PCP/Family)
== END 2017-10-03 13:05 | disposition home health service (06) ==
LOC: ERH 12:58 → ERHI 14:47
PROVIDERS: Emergency Medicine
DX: F10.239 Alcohol dependence with withdrawal, unspecified (principal); F10.229 Alcohol dependence with intoxication, unspecified; N17.9 Acute kidney failure, unspecified; R45.851 Suicidal ideations; I10 Essential (primary) hypertension; M54.9 Dorsalgia, unspecified; F41.9 Anxiety disorder, unspecified; F17.200 Nicotine dependence, unspecified, uncomplicated
CPT/HCPCS: 6090; 71045; 80307; 81001; 87086; 93005; 93010; 99291; G0378; G0463; G0480